=== PATIENT | female | born 1940 | race Caucasian/White ===

== ENCOUNTER 2024-04-26 19:10 | Inpatient (IN) | payer MEDICARE, OTHER ==
[~2024-04-26] VITALS: Ht 152.4 cm; Wt 49.9 kg
[2024-04-26] MEDS ORDERED: VANCOMYCIN 1 GM /D5W 250 ML PB IV ONE (19:47)
[2024-04-26] MEDS ORDERED: PIPERACI/TAZO 3.375GM/D5W 50ML PB IV ONE (19:47)
[2024-04-26] MEDS ORDERED: FERR300L GT (20:00)
[2024-04-26] MEDS ORDERED: FAMO20TA8 GT (20:00)
[2024-04-26] MEDS ORDERED: MULT9LIQ6 GT (20:00)
[2024-04-26] MEDS ORDERED: ALBU2.5V38 NEB (20:00)
[2024-04-26] MEDS ORDERED: CLOT15CR27 TP (20:00)
[2024-04-26] MEDS ORDERED: ASCO500L2 GT (20:00)
[2024-04-26] MEDS ORDERED: ACET325T53 GT ×2 (20:00)
[2024-04-26] MEDS ORDERED: AMIN30LI66 GT (20:00)
[2024-04-26] MEDS: FUROSEMIDE 20 MG/2 ML VIAL IV ONE (20:00)
[2024-04-26] MEDS ORDERED: ONDA-97 GT (20:00)
[2024-04-26] MEDS ORDERED: METO25TA6 GT (20:00)
[2024-04-26] MEDS ORDERED: DOCU50LI GT (20:00)
[2024-04-26] MEDS ORDERED: SUCR1ORA15 GT (20:00)
[2024-04-26] MEDS ORDERED: ZINC220C6 GT (20:00)
[2024-04-26] MEDS ORDERED: NA P133E RC (20:00)
[2024-04-26] MEDS ORDERED: LEVO137T2 GT (20:00)
[2024-04-26] MEDS ORDERED: METO5SOL2 GT (20:00)
[2024-04-26] MEDS ORDERED: MIDO10TA GT (20:00)
[2024-04-26] MEDS ORDERED: LATA7.5D EACHEYE (20:00)
[2024-04-26] MEDS ORDERED: [UNRECOGNIZED DRUG - CODE] SQ (20:00)
[2024-04-26] MEDS: PIPERACILLIN /TAZOBACTAM 3.375 G in IV D5W 50 ML IV ONE (20:12)
[2024-04-26 20:27] LABS: EOSINOPHILS # (AUTO) 0.1 K/uL (0.0-0.7); EOSINOPHILS % (AUTO) 0.7 % (0.0-6.0); HEMATOCRIT 33 % (33-45); HEMOGLOBIN 10.3 g/dL (11.5-14.8); LYMPHOCYTES # (AUTO) 1.1 K/uL (0.8-4.8); LYMPHOCYTES % (AUTO) 5.7 % (20.0-44.0); MEAN CORPUSCULAR HEMOGLOBIN 31 PG (26.0-33.0); MEAN CORPUSCULAR HGB CONC 32 g/dl (31.0-36.0); MEAN CORPUSCULAR VOLUME 99 fL (82-100); MONOCYTES # (AUTO) 0.3 K/uL (0.1-1.30); MONOCYTES % (AUTO) 1.7 % (2.0-12.0); NEUTROPHILS # (AUTO) 18.3 K/uL (1.8-8.9); NEUTROPHILS % (AUTO) 91.9 % (43.0-81.0); PLATELET COUNT (AUTO) 458 K/uL (150-450); RED BLOOD CELL COUNT(AUTO) 3.29 MIL/uL (4.0-5.2); RED CELL DISTRIBUTION WIDTH 17.4 % (11.5-15.0); WHITE BLOOD COUNT (AUTO) 19.9 K/uL (4.3-11.0)
[2024-04-26 20:38] LABS: CALCIUM, SERUM 9.1 mg/dL (8.5-10.1); CARBON DIOXIDE 31 mmol/L (21-32); CHLORIDE 98 mmol/L (98-107); CREATININE 1.3 mg/dL (0.6-1.3); GLUCOSE 162 mg/dL (74-106); POTASSIUM 4.3 mmol/L (3.5-5.1); SODIUM SERUM 138 mmol/L (136-145); UREA NITROGEN, BLOOD 58 mg/dL (7-18)
[2024-04-26 20:41] LABS: INR 1.03 (0.91-1.10); PARTIAL THROMBOPLASTIN TIME 22.5 SEC (24.3-34.3); PROTHROMBIN TIME 10.9 SECS (9.2-11.1)
[2024-04-26] MEDS: VANCOMYCIN 1 GM in IV D5W 250 ML IV ONE (20:45)
[2024-04-26 20:50] LABS: LACTIC ACID 2.5 mmol/L (0.4-2.0)
[2024-04-26 20:52] LABS: ALANINE AMINOTRANSFERASE 35 U/L (12-78); ALBUMIN 3.1 g/dL (3.4-5.0); ALKALINE PHOSPHATASE 98 U/L (46-116); ASPARTATE AMINOTRANSFERASE 31 U/L (15-37); BILIRUBIN,DIRECT 0.1 mg/dL (0.0-0.2); BILIRUBIN,TOTAL 0.3 mg/dL (0.2-1.0); NT-PRO BNP 2066 pg/mL (0-125); TOTAL PROTEIN, SERUM 8.9 g/dL (6.4-8.2)
[2024-04-26 21:35] LABS: APPEARANCE,URINE CLOUDY (CLEAR); BILIRUBIN,URINE NEGATIVE (NEGATIVE); BLOOD, URINE 2+ Ery/uL (NEGATIVE); COLOR,URINE YELLOW (YELLOW); KETONES,URINE NEGATIVE (NEGATIVE); LEUKOCYTE ESTERASE ,URINE 3+ (NEGATIVE); NITRITE, URINE NEGATIVE (NEGATIVE); PH,URINE 6.5 (5.0-8.0); PROTEIN,URINE 1+ mg/dl (NEGATIVE); UGLUCOSE NEGATIVE (NEGATIVE); UROBILINOGEN,URINE 0.2 EU/dL (0.2)
[2024-04-26 21:36] LABS: ADD URINE CULTURE YES; BACTERIA,URINE 1+ /HPF (None Seen); HYALINE CASTS, URINE Few /LPF (None Seen); SQUAMOUS EPITHELIAL CELL,UR Moderate /HPF (None Seen); URINE AMORPHOUS PHOSPHATES Moderate /HPF (None Seen); WBC,URINE 21-50 /HPF (0-3)
[2024-04-26] MEDS ORDERED: ENOXAPARIN SODIUM 40 MG/0.4 ML DISP.SYRIN SQ SCH (23:30)
[2024-04-26] MEDS ORDERED: ONDANSETRON HCL/PF 4 MG/2 ML VIAL IVP PRN (23:30)
[2024-04-26] MEDS ORDERED: ZOLPIDEM TARTRATE 5 MG TABLET PO PRN (23:30)
[2024-04-26] MEDS ORDERED: MAG HYDROX/AL HYDROX/SIMETH 30 ML UDC PO PRN (23:30)
[2024-04-26] MEDS ORDERED: MAGNESIUM HYDROXIDE 30 ML UDC PO PRN (23:30)
[2024-04-26] MEDS ORDERED: ENOXAPARIN SODIUM 30 MG/0.3 ML DISP.SYRIN SQ SCH (23:45)
[2024-04-27] VITALS (8 sets, daily range): BP systolic 92–110; BP diastolic 47–77; TEMP 97.3–100.4; O2SAT 91–97
[2024-04-27] MEDS: NS 0.9% IV ONE (03:30)
[2024-04-27] MEDS: TAZOBACTAM IV ONE (03:30)
[2024-04-27] MEDS: PIPERACILLIN IV ONE (03:30)
[2024-04-27] MEDS: PIPERCILLIN/TAZOBACTAM 2.25GM/D5W 50MLPB IV ONE (04:34)
[2024-04-27 07:24] LABS: LACTIC ACID 1.6 mmol/L (0.4-2.0)
[2024-04-27 07:25] LABS: CALCIUM, SERUM 8.7 mg/dL (8.5-10.1); CREATININE 1.4 mg/dL (0.6-1.3); MAGNESIUM 2.6 mg/dL (1.8-2.4); PHOSPHORUS 4.2 mg/dL (2.5-4.9); POTASSIUM 3.6 mmol/L (3.5-5.1)
[2024-04-27 07:43] LABS: BASOPHILS % (AUTO) 0.1 % (0.0-2.0); EOSINOPHILS % (AUTO) 0.1 % (0.0-6.0); HEMATOCRIT 29 % (33-45); HEMOGLOBIN 9.2 g/dL (11.5-14.8); LYMPHOCYTES # (AUTO) 0.4 K/uL (0.8-4.8); LYMPHOCYTES % (AUTO) 1.8 % (20.0-44.0); MEAN CORPUSCULAR HEMOGLOBIN 31 PG (26.0-33.0); MEAN CORPUSCULAR HGB CONC 32 g/dl (31.0-36.0); MEAN CORPUSCULAR VOLUME 98 fL (82-100); MONOCYTES # (AUTO) 0.5 K/uL (0.1-1.30); MONOCYTES % (AUTO) 2.6 % (2.0-12.0); NEUTROPHILS # (AUTO) 19.8 K/uL (1.8-8.9); NEUTROPHILS % (AUTO) 95.4 % (43.0-81.0); PLATELET COUNT (AUTO) 380 K/uL (150-450); RED BLOOD CELL COUNT(AUTO) 2.95 MIL/uL (4.0-5.2); RED CELL DISTRIBUTION WIDTH 17.4 % (11.5-15.0); WHITE BLOOD COUNT (AUTO) 20.7 K/uL (4.3-11.0)
[2024-04-27 08:07] LABS: THYROID STIMULATING HORMONE 32.72 uIU/mL (0.358-3.74)
[2024-04-27] MEDS: PANTOPRAZOLE 40 MG VIAL IV SCH (08:32)
[2024-04-27] MEDS: HEPARIN SODIUM, PORCINE 5000 UNITS/1 ML VIAL SQ SCH (09:30)
[2024-04-27] MEDS: IV D5/ 0.9% NACL 1,000 ML IV PRN (10:00)
[2024-04-27 10:51] LABS: BAND % (MANUAL) 3 % (0.0-5.0); LYMPHOCYTES % (MANUAL) 2 % (16-48); MONOCYTES % (MANUAL) 2 % (0-11.0); MYELOCYTES % 1 % (0-0); NEUTROPHILS % (MANUAL) 92 (42-76); PLATELET ESTIMATE ADEQUATE
[2024-04-27 10:52] LABS: ANISOCYTOSIS 1+; STOMATOCYTES 2+
[2024-04-27] MEDS: PIPERACILLIN /TAZOBACTAM 3.375 G in IV D5W 50 ML IV SCH (13:33)
[2024-04-27] MEDS ORDERED: NA PHOS,M-B/NA PHOS,DI-BA 1 EA ENEMA RC PRN (14:00)
[2024-04-27] MEDS ORDERED: ALBUTEROL FS 2.5 MG/3 ML VIAL.NEB NEB PRN (14:00)
[2024-04-27] MEDS: MIDODRINE HCL (5MG) 5 MG TABLET PO SCH (14:47)
[2024-04-27] MEDS: LACTULOSE 10 G/15 ML UDC (PYXIS) PO SCH (14:47)
[2024-04-27 16:49] LABS: CREATININE, URINE 65.5 MG/DL (30.0-125.0); URINE TOTAL PROTEIN 191.3 mg/dL (0-11.9)
[2024-04-27] MEDS: METOPROLOL TARTRATE 25 MG TABLET GT SCH (17:00)
[2024-04-27] MEDS: METOCLOPRAMIDE HCL 10 MG/10 ML UDC GT SCH (17:52)
[2024-04-27] MEDS: JEVITY 1.2 CAL 1,000 ML BOTTLE GT PRN (18:46)
[2024-04-27] MEDS: ALBUTEROL FS 2.5 MG/0.5 ML VIAL.NEB NEB PRN (20:13)
[2024-04-27] MEDS: IPRATROPIUM NEB FS 0.5 MG/2.5 ML AMPUL.NEB NEB PRN (20:13)
[2024-04-27] MEDS: SUCRALFATE 1 G/10 ML UDC GT SCH (20:55)
[2024-04-27] MEDS: MIDODRINE HCL (5MG) 5 MG TABLET PO PRN (20:55)
[2024-04-27] MEDS: CLOTRIMAZOLE 1% 15 GM TUBE TP SCH (21:52)
[2024-04-27] MEDS: LATANOPROST EYE DROP 0.005% 2.5 ML BOTTLE EACHEYE SCH (22:24)
[2024-04-28] VITALS (16 sets, daily range): BP systolic 97–127; BP diastolic 52–81; TEMP 97.9–99; O2SAT 92–99
[2024-04-28] MEDS ORDERED: CEFEPIME 1 GM VIAL ONE (00:03)
[2024-04-28] MEDS: CEFEPIME 1 GM in IV D5W 50 ML IV SCH (00:10)
[2024-04-28] MEDS: VANCOMYCIN 750 MG in IV D5W 250 ML IV SCH (08:24)
[2024-04-28] MEDS: LEVOTHYROXINE SODIUM 137 MCG TABLET GT SCH (08:25)
[2024-04-28] MEDS: ZINC SULFATE 220 MG CAPSULE PO SCH (08:25)
[2024-04-28] MEDS: FERROUS SULFATE UDC 300 MG/5 ML UDC GT SCH (08:25)
[2024-04-28] MEDS: PANTOPRAZOLE 40 MG/PACK PACK NG SCH (08:28)
[2024-04-28] MEDS: ACETAMINOPHEN 325 MG TABLET PO PRN (13:25)
[2024-04-28] MEDS: ACETYLCYSTEINE 10% SOLN 400 MG/4 ML VIAL NEB SCH (13:30)
[2024-04-28 13:57] LABS: BASOPHILS % (AUTO) 0.1 % (0.0-2.0); EOSINOPHILS % (AUTO) 0.1 % (0.0-6.0); HEMATOCRIT 28 % (33-45); HEMOGLOBIN 8.7 g/dL (11.5-14.8); LYMPHOCYTES % (AUTO) 4.7 % (20.0-44.0); MEAN CORPUSCULAR HEMOGLOBIN 31 PG (26.0-33.0); MEAN CORPUSCULAR HGB CONC 31 g/dl (31.0-36.0); MEAN CORPUSCULAR VOLUME 100 fL (82-100); MONOCYTES # (AUTO) 0.7 K/uL (0.1-1.30); NEUTROPHILS # (AUTO) 20.6 K/uL (1.8-8.9); NEUTROPHILS % (AUTO) 92.1 % (43.0-81.0); PLATELET COUNT (AUTO) 376 K/uL (150-450); RED BLOOD CELL COUNT(AUTO) 2.79 MIL/uL (4.0-5.2); RED CELL DISTRIBUTION WIDTH 17.6 % (11.5-15.0); WHITE BLOOD COUNT (AUTO) 22.3 K/uL (4.3-11.0)
[2024-04-28 14:57] LABS: ALBUMIN 2.4 g/dL (3.4-5.0); BILIRUBIN,TOTAL 0.5 mg/dL (0.2-1.0); CALCIUM, SERUM 8.4 mg/dL (8.5-10.1); CREATININE 1.5 mg/dL (0.6-1.3); MAGNESIUM 2.8 mg/dL (1.8-2.4); PHOSPHORUS 3.4 mg/dL (2.5-4.9); TOTAL PROTEIN, SERUM 7.9 g/dL (6.4-8.2)
[2024-04-28] MEDS ORDERED: DIATR MEGLU/DIATRIZOATE SODIUM 30 ML BOTTLE (GASTROGRAPHIN) ONE (15:56)
[2024-04-28] MEDS: JEVITY 1.2 CAL 1,000 ML BOTTLE GT PRN (18:49)
[2024-04-28] MEDS: MUPIROCIN OINT 2% 22 GM TUBE NS SCH (21:24)
[2024-04-29] VITALS (32 sets, daily range): BP systolic 74–129; BP diastolic 43–82; TEMP 97.9–98.1; O2SAT 89–98
[2024-04-29] MEDS: IV NS 0.9% 500 ML IV ONE ×3 (00:01→04:44)
[2024-04-29] MEDS: IV D5/ 0.9% NACL 1,000 ML IV PRN (00:34)
[2024-04-29] MEDS: LEVOTHYROXINE SODIUM 137 MCG TABLET GT SCH (05:45)
[2024-04-29 06:55] LABS: BASOPHILS % (AUTO) 0.1 % (0.0-2.0); EOSINOPHILS % (AUTO) 0.2 % (0.0-6.0); HEMATOCRIT 29 % (33-45); HEMOGLOBIN 8.9 g/dL (11.5-14.8); LYMPHOCYTES # (AUTO) 0.7 K/uL (0.8-4.8); LYMPHOCYTES % (AUTO) 3.1 % (20.0-44.0); MEAN CORPUSCULAR HEMOGLOBIN 31 PG (26.0-33.0); MEAN CORPUSCULAR HGB CONC 31 g/dl (31.0-36.0); MEAN CORPUSCULAR VOLUME 101 fL (82-100); MONOCYTES # (AUTO) 0.6 K/uL (0.1-1.30); MONOCYTES % (AUTO) 3.1 % (2.0-12.0); NEUTROPHILS # (AUTO) 19.9 K/uL (1.8-8.9); NEUTROPHILS % (AUTO) 93.5 % (43.0-81.0); PLATELET COUNT (AUTO) 361 K/uL (150-450); RED BLOOD CELL COUNT(AUTO) 2.84 MIL/uL (4.0-5.2); RED CELL DISTRIBUTION WIDTH 17.5 % (11.5-15.0); WHITE BLOOD COUNT (AUTO) 21.2 K/uL (4.3-11.0)
[2024-04-29 07:11] LABS: ALBUMIN 2.2 g/dL (3.4-5.0); BILIRUBIN,TOTAL 0.3 mg/dL (0.2-1.0); CALCIUM, SERUM 7.9 mg/dL (8.5-10.1); CREATININE 1.4 mg/dL (0.6-1.3); MAGNESIUM 2.8 mg/dL (1.8-2.4); PHOSPHORUS 3.5 mg/dL (2.5-4.9); TOTAL PROTEIN, SERUM 7.5 g/dL (6.4-8.2)
[2024-04-29 07:13] LABS: POTASSIUM 2.8 mmol/L (3.5-5.1)
[2024-04-29] MEDS: IV D5W 1,000 ML IV PRN (11:37)
[2024-04-29] MEDS: POTASSIUM CL. PREMIX PERIPHER. 50 ML IV SCH (11:47)
[2024-04-29 12:16] LABS: ABG BASE EXCESS -3.1 mmol/L (-2.0-3.0); ABG OXYGEN SATURATION 99.2 % (94.0-98.0); ABG PCO2 58.9 mmHg (32.0-45.0); ABG PH 7.239 (7.350-7.450); ABG PO2 166.8 mmHg (83.0-108.0); ABG TOTAL HEMOGLOBIN 9.1 G/dL (12.0-16.0); COHb 0.5 % (0.5-1.5); MetHb 0.3 % (0.0-1.5); O2Hb 98.4 % (94.0-97.0); SITE, ABG RIGHT RADIAL
[2024-04-29 13:34] LABS: CALCIUM, SERUM 8.6 mg/dL (8.5-10.1); CREATININE 1.5 mg/dL (0.6-1.3); POTASSIUM 3.9 mmol/L (3.5-5.1)
[2024-04-29 14:34] LABS: ABG BASE EXCESS -0.5 mmol/L (-2.0-3.0); ABG OXYGEN SATURATION 95.6 % (94.0-98.0); ABG PCO2 49.6 mmHg (32.0-45.0); ABG PH 7.331 (7.350-7.450); ABG PO2 76.6 mmHg (83.0-108.0); ABG TOTAL HEMOGLOBIN 8.7 G/dL (12.0-16.0); COHb 0.1 % (0.5-1.5); MetHb 0.1 % (0.0-1.5); O2Hb 95.4 % (94.0-97.0); SITE, ABG RIGHT RADIAL
[2024-04-29] MEDS: MEROPENEM 1 G in IV NS 0.9% 100 ML IV SCH (22:39)
[2024-04-30] VITALS (25 sets, daily range): BP systolic 72–118; BP diastolic 38–74; TEMP 97.7–98.1; O2SAT 96–100
[2024-04-30 04:15] LABS: BASOPHILS % (AUTO) 0.1 % (0.0-2.0); EOSINOPHILS # (AUTO) 0.3 K/uL (0.0-0.7); EOSINOPHILS % (AUTO) 1.8 % (0.0-6.0); HEMATOCRIT 28 % (33-45); HEMOGLOBIN 8.8 g/dL (11.5-14.8); LYMPHOCYTES % (AUTO) 5.1 % (20.0-44.0); MEAN CORPUSCULAR HEMOGLOBIN 32 PG (26.0-33.0); MEAN CORPUSCULAR HGB CONC 31 g/dl (31.0-36.0); MEAN CORPUSCULAR VOLUME 101 fL (82-100); MONOCYTES # (AUTO) 0.8 K/uL (0.1-1.30); MONOCYTES % (AUTO) 4.2 % (2.0-12.0); NEUTROPHILS # (AUTO) 17.2 K/uL (1.8-8.9); NEUTROPHILS % (AUTO) 88.8 % (43.0-81.0); PLATELET COUNT (AUTO) 375 K/uL (150-450); RED BLOOD CELL COUNT(AUTO) 2.79 MIL/uL (4.0-5.2); RED CELL DISTRIBUTION WIDTH 17.3 % (11.5-15.0); WHITE BLOOD COUNT (AUTO) 19.4 K/uL (4.3-11.0)
[2024-04-30 05:27] LABS: ALANINE AMINOTRANSFERASE 29 U/L (12-78); ALBUMIN 2.1 g/dL (3.4-5.0); ALKALINE PHOSPHATASE 86 U/L (46-116); ASPARTATE AMINOTRANSFERASE 24 U/L (15-37); BILIRUBIN,TOTAL 0.3 mg/dL (0.2-1.0); CALCIUM, SERUM 7.6 mg/dL (8.5-10.1); CARBON DIOXIDE 25 mmol/L (21-32); CHLORIDE 108 mmol/L (98-107); CREATININE 1.6 mg/dL (0.6-1.3); GLUCOSE 159 mg/dL (74-106); MAGNESIUM 2.6 mg/dL (1.8-2.4); PHOSPHORUS 2.5 mg/dL (2.5-4.9); POTASSIUM 3.4 mmol/L (3.5-5.1); SODIUM SERUM 144 mmol/L (136-145); TOTAL PROTEIN, SERUM 7.6 g/dL (6.4-8.2); UREA NITROGEN, BLOOD 59 mg/dL (7-18)
[2024-04-30] MEDS: POTASSIUM CL. PREMIX PERIPHER. 50 ML IV SCH (10:40)
[2024-04-30 12:54] LABS: CALCIUM, SERUM 7.6 mg/dL (8.5-10.1); CREATININE 1.4 mg/dL (0.6-1.3); POTASSIUM 3.6 mmol/L (3.5-5.1)
[2024-04-30] MEDS: IV D5/ 0.9% NACL 1,000 ML IV PRN (19:13)
[2024-05-01] VITALS (28 sets, daily range): BP systolic 91–129; BP diastolic 45–85; TEMP 98–98.5; O2SAT 89–100
[2024-05-01 04:42] LABS: BASOPHILS % (AUTO) 0.3 % (0.0-2.0); EOSINOPHILS # (AUTO) 0.4 K/uL (0.0-0.7); HEMATOCRIT 25 % (33-45); LYMPHOCYTES # (AUTO) 0.4 K/uL (0.8-4.8); LYMPHOCYTES % (AUTO) 4.1 % (20.0-44.0); MEAN CORPUSCULAR HEMOGLOBIN 32 PG (26.0-33.0); MEAN CORPUSCULAR HGB CONC 32 g/dl (31.0-36.0); MEAN CORPUSCULAR VOLUME 100 fL (82-100); MONOCYTES # (AUTO) 0.4 K/uL (0.1-1.30); MONOCYTES % (AUTO) 4.1 % (2.0-12.0); NEUTROPHILS # (AUTO) 9.3 K/uL (1.8-8.9); NEUTROPHILS % (AUTO) 87.5 % (43.0-81.0); PLATELET COUNT (AUTO) 320 K/uL (150-450); RED BLOOD CELL COUNT(AUTO) 2.53 MIL/uL (4.0-5.2); RED CELL DISTRIBUTION WIDTH 17.1 % (11.5-15.0); WHITE BLOOD COUNT (AUTO) 10.6 K/uL (4.3-11.0)
[2024-05-01 04:58] LABS: BILIRUBIN,TOTAL 0.3 mg/dL (0.2-1.0); CALCIUM, SERUM 7.5 mg/dL (8.5-10.1); CREATININE 1.6 mg/dL (0.6-1.3); MAGNESIUM 2.7 mg/dL (1.8-2.4); PHOSPHORUS 2.5 mg/dL (2.5-4.9); POTASSIUM 3.4 mmol/L (3.5-5.1); TOTAL PROTEIN, SERUM 7.1 g/dL (6.4-8.2)
[2024-05-01 08:07] LABS: PTH, INTACT 41 pg/mL (15-65)
[2024-05-01 09:54] LABS: ABG BASE EXCESS -4.4 mmol/L (-2.0-3.0); ABG OXYGEN SATURATION 98.2 % (94.0-98.0); ABG PCO2 72.2 mmHg (32.0-45.0); ABG PH 7.155 (7.350-7.450); ABG PO2 116.7 mmHg (83.0-108.0); ABG TOTAL HEMOGLOBIN 9.1 G/dL (12.0-16.0); COHb 0.5 % (0.5-1.5); MetHb 0.3 % (0.0-1.5); O2Hb 97.4 % (94.0-97.0); SITE, ABG RIGHT RADIAL
[2024-05-01] MEDS: POTASSIUM CHLORIDE 20 MEQ POWDER PACKET GT SCH (10:34)
[2024-05-01] MEDS: FERROUS SULFATE UDC 300 MG/5 ML UDC GT SCH (13:25)
[2024-05-01 13:56] LABS: CREATININE 1.5 mg/dL (0.6-1.3); POTASSIUM 3.5 mmol/L (3.5-5.1)
[2024-05-01] MEDS ORDERED: JEVITY 1.2 CAL 1,000 ML BOTTLE GT PRN (19:07)
[2024-05-01] MEDS: METOCLOPRAMIDE HCL 10 MG/2 ML VIAL IV SCH (21:30)
[2024-05-01] MEDS: Z GUARD REMEDY 4 OZ OINT TP PRN (21:32)
[2024-05-01] MEDS: IV D5/ 0.9% NACL 1,000 ML IV SCH (21:33)
[2024-05-02] VITALS (60 sets, daily range): BP systolic 82–128; BP diastolic 41–93; TEMP 98.4–99; O2SAT 91–100
[2024-05-02 04:32] LABS: BASOPHILS % (AUTO) 0.2 % (0.0-2.0); EOSINOPHILS # (AUTO) 0.2 K/uL (0.0-0.7); EOSINOPHILS % (AUTO) 2.6 % (0.0-6.0); HEMATOCRIT 25 % (33-45); HEMOGLOBIN 7.8 g/dL (11.5-14.8); LYMPHOCYTES # (AUTO) 0.3 K/uL (0.8-4.8); LYMPHOCYTES % (AUTO) 3.4 % (20.0-44.0); MEAN CORPUSCULAR HEMOGLOBIN 31 PG (26.0-33.0); MEAN CORPUSCULAR HGB CONC 31 g/dl (31.0-36.0); MEAN CORPUSCULAR VOLUME 100 fL (82-100); MONOCYTES # (AUTO) 0.4 K/uL (0.1-1.30); NEUTROPHILS % (AUTO) 88.8 % (43.0-81.0); PLATELET COUNT (AUTO) 283 K/uL (150-450); RED BLOOD CELL COUNT(AUTO) 2.53 MIL/uL (4.0-5.2); RED CELL DISTRIBUTION WIDTH 17.5 % (11.5-15.0)
[2024-05-02 04:45] LABS: ALBUMIN 1.8 g/dL (3.4-5.0); BILIRUBIN,TOTAL 0.3 mg/dL (0.2-1.0); CALCIUM, SERUM 7.4 mg/dL (8.5-10.1); CREATININE 1.7 mg/dL (0.6-1.3); MAGNESIUM 2.8 mg/dL (1.8-2.4); PHOSPHORUS 3.5 mg/dL (2.5-4.9); POTASSIUM 3.6 mmol/L (3.5-5.1); TOTAL PROTEIN, SERUM 6.7 g/dL (6.4-8.2)
[2024-05-02] MEDS: VANCOMYCIN 750 MG in IV D5W 250 ML IV SCH (09:00)
[2024-05-02 09:01] LABS: ABG BASE EXCESS -4.2 mmol/L (-2.0-3.0); ABG OXYGEN SATURATION 99.1 % (94.0-98.0); ABG PH 7.247 (7.350-7.450); ABG TOTAL HEMOGLOBIN 7.8 G/dL (12.0-16.0); COHb 0.5 % (0.5-1.5); MetHb 0.3 % (0.0-1.5); O2Hb 98.3 % (94.0-97.0); SITE, ABG RIGHT RADIAL
[2024-05-02] MEDS: NOREPINEPHRINE 8 MG in IV D5W 242 ML IV PRN (11:00)
[2024-05-02 22:06] LABS: CALCIUM, SERUM 7.3 mg/dL (8.5-10.1); CREATININE 1.6 mg/dL (0.6-1.3); POTASSIUM 3.3 mmol/L (3.5-5.1)
[2024-05-03] VITALS (48 sets, daily range): BP systolic 84–134; BP diastolic 39–90; TEMP 98.3–98.7; O2SAT 84–100
[2024-05-03] MEDS: PHENYLEPHRINE 50 MG in IV NS 0.9% 245 ML IV PRN (03:55)
[2024-05-03] MEDS: PHENYLEPHRINE 10 MG/ML VIAL ONE (04:14)
[2024-05-03 07:50] LABS: BASOPHILS % (AUTO) 0.3 % (0.0-2.0); EOSINOPHILS # (AUTO) 1.3 K/uL (0.0-0.7); EOSINOPHILS % (AUTO) 16.8 % (0.0-6.0); HEMATOCRIT 26 % (33-45); LYMPHOCYTES # (AUTO) 0.4 K/uL (0.8-4.8); LYMPHOCYTES % (AUTO) 4.9 % (20.0-44.0); MEAN CORPUSCULAR HEMOGLOBIN 31 PG (26.0-33.0); MEAN CORPUSCULAR HGB CONC 31 g/dl (31.0-36.0); MEAN CORPUSCULAR VOLUME 99 fL (82-100); MONOCYTES # (AUTO) 0.3 K/uL (0.1-1.30); MONOCYTES % (AUTO) 4.4 % (2.0-12.0); NEUTROPHILS # (AUTO) 5.8 K/uL (1.8-8.9); NEUTROPHILS % (AUTO) 73.6 % (43.0-81.0); PLATELET COUNT (AUTO) 353 K/uL (150-450); RED BLOOD CELL COUNT(AUTO) 2.57 MIL/uL (4.0-5.2); RED CELL DISTRIBUTION WIDTH 17.4 % (11.5-15.0); WHITE BLOOD COUNT (AUTO) 7.8 K/uL (4.3-11.0)
[2024-05-03 08:07] LABS: ALBUMIN 1.7 g/dL (3.4-5.0); BILIRUBIN,TOTAL 0.3 mg/dL (0.2-1.0); CALCIUM, SERUM 7.6 mg/dL (8.5-10.1); CREATININE 1.6 mg/dL (0.6-1.3); MAGNESIUM 2.7 mg/dL (1.8-2.4); PHOSPHORUS 2.1 mg/dL (2.5-4.9); TOTAL PROTEIN, SERUM 6.3 g/dL (6.4-8.2)
[2024-05-03 09:08] LABS: *SPE A/G RATIO 0.6 (0.7-1.7); *SPE ALBUMIN 2.4 g/dL (2.9-4.4); *SPE ALPHA-1-GLOBULIN 0.6 g/dL (0.0-0.4); *SPE ALPHA-2-GLOBULIN 1.2 g/dL (0.4-1.0); *SPE BETA GLOBULIN 0.9 g/dL (0.7-1.3); *SPE GLOBULIN, TOTAL 3.9 g/dL (2.2-3.9); *SPE M-SPIKE Not Observed g/dL (Not Observed); *SPE PROTEIN TOTAL 6.3 g/dL (6.0-8.5); *SPEGAMMA GLOBULIN 1.2 g/dL (0.4-1.8)
[2024-05-03] MEDS ORDERED: POTASSIUM CHLORIDE 20 MEQ POWDER PACKET GT SCH (09:30)
[2024-05-03] MEDS ORDERED: POTASSIUM CL. PREMIX PERIPHER. 50 ML IV SCH (09:30)
[2024-05-03 10:00] LABS: ABG BASE EXCESS -0.9 mmol/L (-2.0-3.0); ABG OXYGEN SATURATION 98.8 % (94.0-98.0); ABG PCO2 54.3 mmHg (32.0-45.0); ABG PH 7.295 (7.350-7.450); ABG PO2 136.1 mmHg (83.0-108.0); ABG TOTAL HEMOGLOBIN 8.4 G/dL (12.0-16.0); COHb 0.6 % (0.5-1.5); MetHb 0.2 % (0.0-1.5); SITE, ABG RIGHT RADIAL
[2024-05-03] MEDS: POTASSIUM CHLORIDE 20 MEQ POWDER PACKET GT SCH (10:02)
[2024-05-03] MEDS: VANCOMYCIN 750 MG in IV D5W 250 ML IV SCH (10:18)
[2024-05-03] MEDS: IV D5W 1,000 ML IV PRN (11:52)
[2024-05-03 12:40] LABS: ABG BASE EXCESS -2.1 mmol/L (-2.0-3.0); ABG OXYGEN SATURATION 94.9 % (94.0-98.0); ABG PCO2 55.6 mmHg (32.0-45.0); ABG PO2 78.3 mmHg (83.0-108.0); ABG TOTAL HEMOGLOBIN 8.6 G/dL (12.0-16.0); COHb 0.8 % (0.5-1.5); MetHb 0.1 % (0.0-1.5); SITE, ABG RIGHT RADIAL
[2024-05-03] MEDS: NEUTRA PHOS 1 POWD.PACKET GT ONE (17:51)
[2024-05-04] VITALS (29 sets, daily range): BP systolic 106–152; BP diastolic 49–100; TEMP 97.8–98.5; O2SAT 89–98
[2024-05-04 03:46] LABS: BASOPHILS % (AUTO) 0.6 % (0.0-2.0); EOSINOPHILS # (AUTO) 1.2 K/uL (0.0-0.7); EOSINOPHILS % (AUTO) 17.7 % (0.0-6.0); HEMATOCRIT 25 % (33-45); HEMOGLOBIN 8.1 g/dL (11.5-14.8); LYMPHOCYTES # (AUTO) 0.4 K/uL (0.8-4.8); LYMPHOCYTES % (AUTO) 6.4 % (20.0-44.0); MEAN CORPUSCULAR HEMOGLOBIN 31 PG (26.0-33.0); MEAN CORPUSCULAR HGB CONC 32 g/dl (31.0-36.0); MEAN CORPUSCULAR VOLUME 98 fL (82-100); MONOCYTES # (AUTO) 0.4 K/uL (0.1-1.30); MONOCYTES % (AUTO) 5.5 % (2.0-12.0); NEUTROPHILS # (AUTO) 4.6 K/uL (1.8-8.9); NEUTROPHILS % (AUTO) 69.8 % (43.0-81.0); PLATELET COUNT (AUTO) 336 K/uL (150-450); RED BLOOD CELL COUNT(AUTO) 2.59 MIL/uL (4.0-5.2); RED CELL DISTRIBUTION WIDTH 17.3 % (11.5-15.0); WHITE BLOOD COUNT (AUTO) 6.6 K/uL (4.3-11.0)
[2024-05-04 04:05] LABS: ALBUMIN 1.6 g/dL (3.4-5.0); BILIRUBIN,TOTAL 0.3 mg/dL (0.2-1.0); CALCIUM, SERUM 7.4 mg/dL (8.5-10.1); CREATININE 1.4 mg/dL (0.6-1.3); MAGNESIUM 2.4 mg/dL (1.8-2.4); PHOSPHORUS 2.1 mg/dL (2.5-4.9); POTASSIUM 2.9 mmol/L (3.5-5.1); TOTAL PROTEIN, SERUM 6.1 g/dL (6.4-8.2)
[2024-05-04] MEDS: POTASSIUM CL. PREMIX PERIPHER. 50 ML IV SCH ×2 (07:14→12:42)
[2024-05-04 09:37] LABS: ABG BASE EXCESS -1.6 mmol/L (-2.0-3.0); ABG OXYGEN SATURATION 94.6 % (94.0-98.0); ABG PCO2 41.7 mmHg (32.0-45.0); ABG PO2 70.5 mmHg (83.0-108.0); ABG TOTAL HEMOGLOBIN 7.7 G/dL (12.0-16.0); COHb 1.2 % (0.5-1.5); MetHb 0.3 % (0.0-1.5); O2Hb 93.2 % (94.0-97.0); SITE, ABG RIGHT RADIAL
[2024-05-04] MEDS: IV D5W 1,000 ML IV ONE (11:59)
[2024-05-04] MEDS ORDERED: DEXTROSE 50%-WATER 50 ML DISP.SYRIN IV PRN (14:30)
[2024-05-04] MEDS ORDERED: PPN PER PHARMACY IV PRN (14:30)
[2024-05-04 15:35] LABS: CALCIUM, SERUM 7.2 mg/dL (8.5-10.1); CREATININE 1.3 mg/dL (0.6-1.3); POTASSIUM 3.5 mmol/L (3.5-5.1)
[2024-05-04] MEDS: POTASSIUM PHOSPHATE MM 7.5 MMOL in IV NS 0.9% 100 ML IV SCH (16:08)
[2024-05-04] MEDS: PPN BAG #1 IV SCH (16:08)
[2024-05-04] MEDS: BLOOD SUGAR DIAGNOSTIC 1 EACH STRIP IN SCH (17:29)
[2024-05-05] VITALS (19 sets, daily range): BP systolic 94–153; BP diastolic 54–77; TEMP 97.2–98.7; O2SAT 91–99
[2024-05-05] MEDS: INSULIN REGULAR, HUMAN 100 UNIT/ML 3 ML VIAL SQ PRN (00:04)
[2024-05-05 08:23] LABS: BASOPHILS % (AUTO) 0.2 % (0.0-2.0); EOSINOPHILS # (AUTO) 1.3 K/uL (0.0-0.7); EOSINOPHILS % (AUTO) 13.2 % (0.0-6.0); HEMATOCRIT 26 % (33-45); HEMOGLOBIN 8.4 g/dL (11.5-14.8); LYMPHOCYTES # (AUTO) 0.6 K/uL (0.8-4.8); LYMPHOCYTES % (AUTO) 6.4 % (20.0-44.0); MEAN CORPUSCULAR HEMOGLOBIN 31 PG (26.0-33.0); MEAN CORPUSCULAR HGB CONC 32 g/dl (31.0-36.0); MEAN CORPUSCULAR VOLUME 97 fL (82-100); MONOCYTES # (AUTO) 0.4 K/uL (0.1-1.30); NEUTROPHILS # (AUTO) 7.2 K/uL (1.8-8.9); NEUTROPHILS % (AUTO) 76.2 % (43.0-81.0); PLATELET COUNT (AUTO) 386 K/uL (150-450); RED BLOOD CELL COUNT(AUTO) 2.73 MIL/uL (4.0-5.2); RED CELL DISTRIBUTION WIDTH 17.5 % (11.5-15.0); WHITE BLOOD COUNT (AUTO) 9.5 K/uL (4.3-11.0)
[2024-05-05 08:36] LABS: ALBUMIN 1.7 g/dL (3.4-5.0)
[2024-05-05 08:40] LABS: PREALBUMIN 8.7 MG/DL (18.0-35.7)
[2024-05-05 08:43] LABS: ALBUMIN 1.7 g/dL (3.4-5.0); BILIRUBIN,TOTAL 0.3 mg/dL (0.2-1.0); CREATININE 1.2 mg/dL (0.6-1.3); PHOSPHORUS 2.3 mg/dL (2.5-4.9); TOTAL PROTEIN, SERUM 6.3 g/dL (6.4-8.2)
[2024-05-05 08:45] LABS: VANCOMYCIN,RANDOM 18 ug/mL (20-30)
[2024-05-05 08:49] LABS: CHOLESTEROL 84 mg/dL (<200); HDL CHOLESTEROL 29 mg/dL (40-60); LDL 36 mg/dL (0-99); TRIGLYCERIDES 161 mg/dL (30-150)
[2024-05-05] MEDS: POTASSIUM PHOSPHATE MM 7.5 MMOL in IV NS 0.9% 100 ML IV SCH (13:50)
[2024-05-05] MEDS: IV NS 0.9% 250 ML IV PRN (15:35)
[2024-05-05] MEDS: POTASSIUM CL. PREMIX PERIPHER. 50 ML IV SCH (20:22)
[2024-05-05] MEDS: FAT EMULSION 20% 500 ML in PREMIX 1 EA IV SCH (20:22)
[2024-05-06] VITALS (10 sets, daily range): BP systolic 107–148; BP diastolic 49–80; TEMP 97.3–97.8; O2SAT 95–99
[2024-05-06] MEDS: PPN #2 IV SCH (07:54)
[2024-05-06 08:18] LABS: BASOPHILS % (AUTO) 0.1 % (0.0-2.0); EOSINOPHILS # (AUTO) 1.9 K/uL (0.0-0.7); EOSINOPHILS % (AUTO) 10.8 % (0.0-6.0); HEMATOCRIT 29 % (33-45); HEMOGLOBIN 9.1 g/dL (11.5-14.8); LYMPHOCYTES % (AUTO) 5.5 % (20.0-44.0); MEAN CORPUSCULAR HEMOGLOBIN 31 PG (26.0-33.0); MEAN CORPUSCULAR HGB CONC 31 g/dl (31.0-36.0); MEAN CORPUSCULAR VOLUME 98 fL (82-100); MONOCYTES # (AUTO) 0.6 K/uL (0.1-1.30); MONOCYTES % (AUTO) 3.5 % (2.0-12.0); NEUTROPHILS % (AUTO) 80.1 % (43.0-81.0); PLATELET COUNT (AUTO) 456 K/uL (150-450); RED BLOOD CELL COUNT(AUTO) 2.95 MIL/uL (4.0-5.2); RED CELL DISTRIBUTION WIDTH 17.6 % (11.5-15.0); WHITE BLOOD COUNT (AUTO) 17.5 K/uL (4.3-11.0)
[2024-05-06 08:41] LABS: ALBUMIN 1.9 g/dL (3.4-5.0); BILIRUBIN,TOTAL 0.3 mg/dL (0.2-1.0); CALCIUM, SERUM 6.8 mg/dL (8.5-10.1); CREATININE 1.2 mg/dL (0.6-1.3); MAGNESIUM 1.9 mg/dL (1.8-2.4); PHOSPHORUS 3.5 mg/dL (2.5-4.9); POTASSIUM 3.4 mmol/L (3.5-5.1); TOTAL PROTEIN, SERUM 6.6 g/dL (6.4-8.2)
[2024-05-06] MEDS: POTASSIUM CL. PREMIX PERIPHER. 50 ML IV SCH (10:35)
[2024-05-06 13:14] LABS: BAND % (MANUAL) 2 % (0.0-5.0); EOSINOPHILS % (MANUAL) 5 % (0-4); LYMPHOCYTES % (MANUAL) 12 % (16-48); MONOCYTES % (MANUAL) 1 % (0-11.0); NEUTROPHILS % (MANUAL) 80 (42-76); PLATELET ESTIMATE INCREASED
[2024-05-06 13:15] LABS: ANISOCYTOSIS 1+
[2024-05-07] VITALS (10 sets, daily range): BP systolic 98–138; BP diastolic 50–87; TEMP 97.5–98.2; O2SAT 94–99
[2024-05-07 08:02] LABS: BASOPHILS # (AUTO) 0.1 K/uL (0.0-0.2); BASOPHILS % (AUTO) 0.4 % (0.0-2.0); EOSINOPHILS # (AUTO) 1.6 K/uL (0.0-0.7); EOSINOPHILS % (AUTO) 13.7 % (0.0-6.0); HEMATOCRIT 26 % (33-45); LYMPHOCYTES # (AUTO) 0.7 K/uL (0.8-4.8); LYMPHOCYTES % (AUTO) 5.8 % (20.0-44.0); MEAN CORPUSCULAR HEMOGLOBIN 30 PG (26.0-33.0); MEAN CORPUSCULAR HGB CONC 31 g/dl (31.0-36.0); MEAN CORPUSCULAR VOLUME 97 fL (82-100); MONOCYTES # (AUTO) 0.7 K/uL (0.1-1.30); MONOCYTES % (AUTO) 5.7 % (2.0-12.0); NEUTROPHILS # (AUTO) 8.6 K/uL (1.8-8.9); NEUTROPHILS % (AUTO) 74.4 % (43.0-81.0); PLATELET COUNT (AUTO) 391 K/uL (150-450); RED BLOOD CELL COUNT(AUTO) 2.68 MIL/uL (4.0-5.2); RED CELL DISTRIBUTION WIDTH 17.2 % (11.5-15.0); WHITE BLOOD COUNT (AUTO) 11.6 K/uL (4.3-11.0)
[2024-05-07 08:09] LABS: CALCIUM, SERUM 6.6 mg/dL (8.5-10.1); CREATININE 1.2 mg/dL (0.6-1.3); MAGNESIUM 1.9 mg/dL (1.8-2.4); PHOSPHORUS 2.9 mg/dL (2.5-4.9); POTASSIUM 3.2 mmol/L (3.5-5.1)
[2024-05-07] MEDS: POTASSIUM CL. PREMIX PERIPHER. 50 ML IV SCH (11:51)
[2024-05-07] MEDS ORDERED: IOHEXOL-350 100 ML VIAL IV ONE (17:44)
[2024-05-07] MEDS ORDERED: IV NS 0.9% 250 ML IV ONE (17:44)
[2024-05-08] VITALS (8 sets, daily range): BP systolic 97–128; BP diastolic 44–67; TEMP 97.7–98.1; O2SAT 94–100
[2024-05-08] MEDS: PPN BAG #3 IV SCH (00:53)
[2024-05-08 06:50] LABS: BASOPHILS % (AUTO) 0.2 % (0.0-2.0); EOSINOPHILS # (AUTO) 1.3 K/uL (0.0-0.7); EOSINOPHILS % (AUTO) 11.5 % (0.0-6.0); HEMATOCRIT 27 % (33-45); HEMOGLOBIN 8.4 g/dL (11.5-14.8); LYMPHOCYTES # (AUTO) 0.6 K/uL (0.8-4.8); LYMPHOCYTES % (AUTO) 5.7 % (20.0-44.0); MEAN CORPUSCULAR HEMOGLOBIN 31 PG (26.0-33.0); MEAN CORPUSCULAR HGB CONC 31 g/dl (31.0-36.0); MEAN CORPUSCULAR VOLUME 98 fL (82-100); MONOCYTES # (AUTO) 0.6 K/uL (0.1-1.30); MONOCYTES % (AUTO) 5.1 % (2.0-12.0); NEUTROPHILS # (AUTO) 8.6 K/uL (1.8-8.9); NEUTROPHILS % (AUTO) 77.5 % (43.0-81.0); PLATELET COUNT (AUTO) 429 K/uL (150-450); RED BLOOD CELL COUNT(AUTO) 2.73 MIL/uL (4.0-5.2); RED CELL DISTRIBUTION WIDTH 17.1 % (11.5-15.0); WHITE BLOOD COUNT (AUTO) 11.1 K/uL (4.3-11.0)
[2024-05-08 07:00] LABS: CALCIUM, SERUM 6.3 mg/dL (8.5-10.1); CREATININE 1.1 mg/dL (0.6-1.3); MAGNESIUM 1.8 mg/dL (1.8-2.4); PHOSPHORUS 2.4 mg/dL (2.5-4.9); POTASSIUM 3.6 mmol/L (3.5-5.1)
[2024-05-08] MEDS: Sodium Phosphate 15 MMOL in IV NS 0.9% 245 ML IV SCH (11:23)
[2024-05-09 06:47] LABS: BASOPHILS % (AUTO) 0.3 % (0.0-2.0); EOSINOPHILS # (AUTO) 1.6 K/uL (0.0-0.7); EOSINOPHILS % (AUTO) 14.7 % (0.0-6.0); HEMATOCRIT 24 % (33-45); HEMOGLOBIN 7.6 g/dL (11.5-14.8); LYMPHOCYTES # (AUTO) 0.8 K/uL (0.8-4.8); LYMPHOCYTES % (AUTO) 7.8 % (20.0-44.0); MEAN CORPUSCULAR HEMOGLOBIN 31 PG (26.0-33.0); MEAN CORPUSCULAR HGB CONC 32 g/dl (31.0-36.0); MEAN CORPUSCULAR VOLUME 98 fL (82-100); MONOCYTES # (AUTO) 0.9 K/uL (0.1-1.30); MONOCYTES % (AUTO) 8.2 % (2.0-12.0); NEUTROPHILS # (AUTO) 7.3 K/uL (1.8-8.9); PLATELET COUNT (AUTO) 391 K/uL (150-450); RED BLOOD CELL COUNT(AUTO) 2.45 MIL/uL (4.0-5.2); RED CELL DISTRIBUTION WIDTH 17.1 % (11.5-15.0); WHITE BLOOD COUNT (AUTO) 10.5 K/uL (4.3-11.0)
[2024-05-09] MEDS ORDERED: HYDROGEN PEROXIDE 480 ML BOTTLE TP PRN (07:00)
[2024-05-09] MEDS: IPRATROPIUM NEB FS 0.5 MG/2.5 ML AMPUL.NEB NEB SCH (07:11)
[2024-05-09 07:12] VITALS: O2SAT 92
[2024-05-09] MEDS: ALBUTEROL FS 2.5 MG/0.5 ML VIAL.NEB NEB SCH (07:12)
[2024-05-09 07:27] VITALS: O2SAT 94
[2024-05-09 07:30] VITALS: BP 86/42; TEMP 98.4; O2SAT 97
[2024-05-09] MEDS ORDERED: IPRATROPIUM NEB FS 0.5 MG/2.5 ML AMPUL.NEB NEB PRN (07:35)
[2024-05-09] MEDS ORDERED: ALBUTEROL FS 2.5 MG/0.5 ML VIAL.NEB NEB PRN (07:35)
[2024-05-09 07:38] LABS: ALBUMIN 1.5 g/dL (3.4-5.0); BILIRUBIN,TOTAL 0.3 mg/dL (0.2-1.0); CALCIUM, SERUM 6.3 mg/dL (8.5-10.1); CREATININE 1.2 mg/dL (0.6-1.3); MAGNESIUM 1.7 mg/dL (1.8-2.4); PHOSPHORUS 2.7 mg/dL (2.5-4.9); POTASSIUM 3.3 mmol/L (3.5-5.1); TOTAL PROTEIN, SERUM 5.9 g/dL (6.4-8.2)
[2024-05-09] MEDS: POTASSIUM CL. PREMIX PERIPHER. 50 ML IV SCH (09:00)
[2024-05-09] MEDS: Magnesium 1GM/D5W 100ML PREMIX 100 ML IV SCH (09:00)
[2024-05-09] MEDS ORDERED: HYDROGEN PEROXIDE 480 ML BOTTLE TP SCH (09:00)
[2024-05-09] MEDS: PPN #4 IV SCH (09:40)
[2024-05-09 13:12] VITALS: O2SAT 95
[2024-05-09] MEDS ORDERED: MORPHINE SULFATE INJ 4 MG/ML DISP.SYRIN IM PRN (13:30)
[2024-05-09] MEDS: MORPHINE SULFATE PF DRIP 100 MG in IV D5W 96 ML IV PRN (15:20)
[2024-05-09 16:00] VITALS: BP 97/49; TEMP 97.3; O2SAT 83
[2024-05-09] MEDS: LORAZEPAM INJ 2 MG/ML VIAL IV PRN (20:24)
[2024-05-09] MEDS ORDERED: KEY,NONCONTROL,TO KEEP IN PYXI 1 EA MC ONE (20:42)
[2024-05-09 22:27] VITALS: BP 51/40; O2SAT 88
[2024-05-10] MEDS ORDERED: PPN #5 IV SCH (13:35)
== END 2024-05-09 20:44 | DRG 871 ==
LOC: ER 19:21 → TELE1 21:54 → ICU 04-29 12:17 → TELE 05-05 16:33 → MED 05-08 10:02
PROVIDERS: ADMIT Student in an Organized Health Care Education/Training Program; ATTEND Nurse Practitioner Acute Care
PROC: 5A09557 Assistance with Respiratory Ventilation, Greater than 96 Consecutive Hours, Continuous Positive Airway Pressure (ICD-10-PCS; principal; 2024-04-29)
DX: A41.9 Sepsis, unspecified organism (principal); G82.50 Quadriplegia, unspecified; J96.01 Acute respiratory failure with hypoxia; J96.02 Acute respiratory failure with hypercapnia; J69.0 Pneumonitis due to inhalation of food and vomit; L89.894 Pressure ulcer of other site, stage 4; N39.0 Urinary tract infection, site not specified; E87.0 Hyperosmolality and hypernatremia; E87.29 Other acidosis; Z51.5 Encounter for palliative care; G93.49 Other encephalopathy; N17.9 Acute kidney failure, unspecified; E44.0 Moderate protein-calorie malnutrition; I13.0 Hypertensive heart and chronic kidney disease with heart failure and stage 1 through stage 4 chronic kidney disease, or unspecified chronic kidney disease; M86.672 Other chronic osteomyelitis, left ankle and foot; M86.671 Other chronic osteomyelitis, right ankle and foot; Z16.12 Extended spectrum beta lactamase (ESBL) resistance; I50.9 Heart failure, unspecified; D64.9 Anemia, unspecified; D75.839 Thrombocytosis, unspecified; E03.9 Hypothyroidism, unspecified; E83.41 Hypermagnesemia; E86.0 Dehydration; E87.6 Hypokalemia; F25.9 Schizoaffective disorder, unspecified; M24.562 Contracture, left knee; M24.561 Contracture, right knee; R13.10 Dysphagia, unspecified; Z66 Do not resuscitate; Z68.21 Body mass index [BMI] 21.0-21.9, adult; B96.1 Klebsiella pneumoniae [K. pneumoniae] as the cause of diseases classified elsewhere; E83.9 Disorder of mineral metabolism, unspecified; L98.8 Other specified disorders of the skin and subcutaneous tissue; Z22.322 Carrier or suspected carrier of Methicillin resistant Staphylococcus aureus; F02.80 Dementia in other diseases classified elsewhere, unspecified severity, without behavioral disturbance, psychotic disturbance, mood disturbance, and anxiety; G30.9 Alzheimer's disease, unspecified; K31.84 Gastroparesis; Z93.1 Gastrostomy status
CPT/HCPCS: 31720; 36415; 36600; 71045-TC; 74018; 76770-TC; 80048-TC; 80053-TC; 80061-TC; 80076-TC; 80202-TC; 81001; 82040-TC; 82550-TC; 82570-TC; 82803-TC; 82962-TC; 83605-TC; 83735-TC; 83880; 83970; 84100-TC; 84134-TC; 84155; 84165; 84300-TC; 84443-TC; 84484-TC; 85025-TC; 85730-TC; 87040-TC; 87081-TC; 87086-TC; 87186-TC; 93307-TC; 94760-TC; 94761-TC; 94762-TC; 94799-TC; 99082-TC; A4216; A4223; A6253; A6403; A9563; G0378; J0692; J1644; J1815; J1940; J2060; J2185; J2274; J2470; J2543; J2765; J3370; J3371; J3480; J3490; J7030; J7040; J7042; J7050; J7060; J7070; J8597; Q9963; Q9967